=== PATIENT | female | born 2000 | race Caucasian/White ===

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

== ENCOUNTER 2019-05-24 03:16 | Inpatient (IN) | payer MEDICAID ==
[~2019-05-24] VITALS: Ht 165.1 cm; Wt 90.7 kg
[2019-05-24] MEDS ORDERED: LACTATED RINGERS 1,000 ML IV SCH (04:09)
[2019-05-24] MEDS ORDERED: DEXT 5%/LR + PITOCIN 20UNITS/L 1,000 ML IV SCH ×2 (04:09→08:12)
[2019-05-24] MEDS ORDERED: BUTORPHANOL TARTRATE 2 MG/ML VIAL IV PRN (04:15)
[2019-05-24] MEDS ORDERED: MISOPROSTOL 100MCG TABLET VG SCH (04:15)
[2019-05-24] MEDS ORDERED: LIDOCAINE HCL 1% 20ML VIAL (Pyxis) INJ INFIL SCH (04:15)
[2019-05-24] MEDS ORDERED: METHYLERGONOVINE MALEATE 0.2 MG/ML IM PRN ×2 (04:15→08:15)
[2019-05-24] MEDS ORDERED: CARBOPROST TROMETHAMINE 250 MCG/ML AMPUL IM PRN (04:15)
[2019-05-24] MEDS ORDERED: NALOXONE HCL 0.4 MG/ML 1ML VIAL IM PRN (04:15)
[2019-05-24] MEDS ORDERED: PNV1TABL76 MT (04:19)
[2019-05-24] MEDS ORDERED: PENICILLIN G POTASSIUM 5 MMU in DEXT 5% WATER 100 ML IV SCH (04:30)
[2019-05-24 05:51] LABS: INR 0.9; PARTIAL THROMBOPLASTIN TIME 28.9 sec (23.4-31.0); PROTHROMBIN TIME 9.3 sec (9.6-11.0)
[2019-05-24 05:57] LABS: BASOPHILS % 0.2 % (0.0-2.0); EOSINOPHILS % 1.1 % (0.0-5.0); HEMATOCRIT. 31.2 % (36.0-48.0); HEMOGLOBIN. 10.3 g/dL (12.0-16.0); LYMPHOCYTES % 24.8 % (20.0-50.0); MEAN CORPUSCULAR HEMOGLOBIN 26.8 pg (28.0-32.0); MEAN CORPUSCULAR VOLUME 81.3 fL (81.0-99.0); MEAN PLATELET VOLUME 9.3 fl (7.4-10.4); MONOCYTES % 5.8 % (2.0-8.0); NEUTROPHILS % 68.1 % (40.0-76.0); PLATELET 280 x1000/uL (130-400); RED BLOOD CELL COUNT 3.84 mill/uL (4.2-5.4)
[2019-05-24 06:14] LABS: CLARITY URINE CLEAR (CLEAR); COLOR URINE YELLOW (YELLOW); KETONES URINE NEGATIVE (NEGATIVE); LEUKOCYTE ESTERASE URINE 1+ (NEGATIVE); NITRITE URINE NEGATIVE (NEGATIVE); OCCULT BLOOD URINE NEGATIVE (NEGATIVE); PROTEIN URINE NEGATIVE (NEGATIVE); SPECIFIC GRAVITY URINE 1.018 (1.005-1.030); UROBILINOGEN URINE 0.2 E.U./dL (0.2-1.0)
[2019-05-24 06:54] LABS: *BARBITURATES SCREEN URINE NEGATIVE (NEGATIVE)
[2019-05-24 06:55] LABS: *AMPHETAMINES SCREEN URINE NEGATIVE (NEGATIVE); *BENZODIAZEPINES SCREEN URINE NEGATIVE (NEGATIVE); *COCAINE SCREEN URINE NEGATIVE (NEGATIVE); CANNABINOID URINE SCREEN NEGATIVE (NEGATIVE); METHADONE URINE SCREEN NEGATIVE (NEGATIVE); OPIATES URINE SCREEN NEGATIVE (NEGATIVE); PHENCYCLIDINE URINE SCREEN NEGATIVE (NEGATIVE)
[2019-05-24 08:10] VITALS: BP 105/53
[2019-05-24] MEDS ORDERED: IBUPROFEN 400MG TABLET PO PRN (08:15)
[2019-05-24] MEDS ORDERED: MINERAL OIL 30ML BOTTLE PR NR (08:15)
[2019-05-24] MEDS ORDERED: RHO(D) IMMUNE GLOBULIN 300 MCG/SYR IM PRN (08:15)
[2019-05-24] MEDS ORDERED: LANOLIN OINT 7GM TUBE TOP PRN (08:15)
[2019-05-24] MEDS ORDERED: DIPHENHYDRAMINE 25MG CAPSULE PO PRN (08:15)
[2019-05-24] MEDS ORDERED: PENICILLIN G POTASSIUM 2.5 MMU in DEXTROSE 5% WATER 50 ML IV SCH (09:00)
[2019-05-24 12:32] LABS: HEPATITIS B SURFACE ANTIGEN NEGATIVE
[2019-05-24 16:00] VITALS: BP 106/47
[2019-05-24] MEDS: PRENATAL VIT/FE FUMARATE/FA TABLET PO SCH (18:16)
[2019-05-24 19:30] VITALS: BP 108/56
[2019-05-24 23:40] VITALS: BP 100/50
[2019-05-24] MEDS: DOCUSATE SODIUM 100MG CAPSULE PO SCH (23:40)
[2019-05-24] MEDS: IBUPROFEN 800MG TABLET PO PRN (23:41)
[2019-05-25 07:51] LABS: BASOPHILS % 0.6 % (0.0-2.0); EOSINOPHILS % 1.9 % (0.0-5.0); HEMATOCRIT. 26.1 % (36.0-48.0); HEMOGLOBIN. 8.7 g/dL (12.0-16.0); LYMPHOCYTES % 33.8 % (20.0-50.0); MEAN CORPUSCULAR HEMOGLOBIN 27.3 pg (28.0-32.0); MEAN CORPUSCULAR VOLUME 81.2 fL (81.0-99.0); MEAN PLATELET VOLUME 8.7 fl (7.4-10.4); MONOCYTES % 6.1 % (2.0-8.0); NEUTROPHILS % 57.6 % (40.0-76.0); PLATELET 221 x1000/uL (130-400); RED BLOOD CELL COUNT 3.21 mill/uL (4.2-5.4); RED CELL DISTRIBUTION WIDTH 14.8 % (11.6-14.6)
[2019-05-25 08:50] VITALS: BP 102/51
[2019-05-25] MEDS: PRENATAL VIT/FE FUMARATE/FA TABLET PO SCH (08:54)
[2019-05-25 16:00] VITALS: BP 101/47
[2019-05-25] MEDS: IBUPROFEN 800MG TABLET PO PRN (17:32)
[2019-05-25 20:00] VITALS: BP 112/74
[2019-05-25] MEDS: DOCUSATE SODIUM 100MG CAPSULE PO SCH (20:37)
[2019-05-26 04:00] VITALS: BP 107/56
[2019-05-26] MEDS: IBUPROFEN 800MG TABLET PO PRN (04:44)
[2019-05-26 07:30] VITALS: BP 104/57
== END 2019-05-26 12:45 | disposition home or self-care (01) | DRG 560 ==
LOC: OBSVTOIN 03:16 → 8 EST LDRP 03:16 → 8EST 08:45
PROVIDERS: ADMIT Obstetrics & Gynecology; ATTEND Obstetrics & Gynecology
PROC: 10E0XZZ Delivery of Products of Conception, External Approach (ICD-10-PCS; principal; 2019-05-24)
PROC: 0HQ9XZZ Repair Perineum Skin, External Approach (ICD-10-PCS; 2019-05-24)
DX: O48.0 Post-term pregnancy (principal); D62 Acute posthemorrhagic anemia; O70.0 First degree perineal laceration during delivery; Z37.0 Single live birth; O99.02 Anemia complicating childbirth; Z3A.40 40 weeks gestation of pregnancy
CPT/HCPCS: 36415; 80305; 81003; 86592; 86703; 86762; 86850; 86900; 87340; 99281; G0378; J0595; J2540; J2590; J3490; J7060; J7120